=== PATIENT | female | born 1990 | race Caucasian/White ===

== ENCOUNTER 2017-10-11 22:07 | Emergency (ER) | payer SELFPAY ==
[~2017-10-11] VITALS: Ht 160 cm; Wt 79.0 kg
[2017-10-11 22:53] VITALS: Ht 160 cm; Wt 79.0 kg
[2017-10-12 02:17] VITALS: BP 105/61
== END 2017-10-12 02:17 | disposition home or self-care (01) ==
LOC: ED 22:07
DX: R51 Headache (principal); R11.0 Nausea; Z88.5 Allergy status to narcotic agent
CPT/HCPCS: J1885; J3010; Q0162; Q0163

== ENCOUNTER 2020-03-28 13:02 | Emergency (ER) | payer MEDICAID ==
[~2020-03-28] VITALS: Ht 157.5 cm; Wt 85.7 kg
[2020-03-28 13:13] VITALS: BP 110/74; Ht 157.5 cm; Wt 85.7 kg
== END 2020-03-28 14:40 | disposition home or self-care (01) ==
LOC: ED 13:02
DX: G43.909 Migraine, unspecified, not intractable, without status migrainosus (principal); Z88.5 Allergy status to narcotic agent